=== PATIENT | male | born 1990 ===

== ENCOUNTER 2017-10-07 14:17 | Emergency (ER) | payer OTHER ==
[2017-10-07 14:37] VITALS: BP 118/75; PULSE 77; RESP 18; TEMP 98.3; O2SAT 99
[2017-10-07] MEDS ORDERED: cefTRIAXone (Rocephin) 250 mg Inj IM STA (14:44)
--- NOTE | 2017-10-07 14:46 | C.PDOC ---
History Of Present Illness 26yo male, comes to ER for evaluation of an itchy penile rash for the past 5 months. Patient states his symptoms started after he had unprotected sexual intercourse and he is concerned about a possible STD. Patient denies any discharge, dysuria, hematuria and offers no other complaints. VIA TRANS PENILE RASH, DC ITCH X 5 MO. ONSET AFTER UNSAFE SEX, CONCERN POSSIBLE STD. NO DC. DENIES OTHER ASSOC SX EXAM NAD [employer] [place]. UNCIRCUM. NO GROSS RASH, PENILE DC. 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 Time Seen by Provider: 10/07/17 14:43 Chief Complaint (Nursing): Male Genitourinary History Per: Patient, Site Safety Coordinator History/Exam Limitations: no limitations Onset/Duration Of Symptoms: Persistent Current Symptoms Are (Timing): Still Present Associated Symptoms: denies: Fever, Chills, Nausea, Vomiting, Diarrhea, Urinary Symptoms Past Medical History Reviewed: Historical Data, Nursing Documentation, Vital Signs Vital Signs: Last Vital Signs Temp 98.3 F 10/07/17 14:35 Pulse 77 10/07/17 14:35 Resp 18 10/07/17 14:35 BP 118/75 10/07/17 14:35 Pulse Ox 99 10/07/17 15:11 - Medical History PMH: No Chronic Diseases Surgical History: No Surg Hx Family History: States: No Known Family Hx - Social History Hx Alcohol Use: No Hx Substance Use: No Review Of Systems Except As Marked, All Systems Reviewed And Found Negative. Constitutional: Negative for: Fever, Chills Gastrointestinal: Negative for: Nausea, Vomiting, Abdominal Pain, Diarrhea Genitourinary: Positive for: Penile Discharge, Rash. Negative for: Dysuria, Frequency, Hematuria Physical Exam - Physical Exam Appears: Non-toxic, No Acute Distress Skin: Warm, Dry Head: Atraumatic, Normacephalic Eye(s): bilateral: Normal Inspection Neck: Supple Chest: Symmetrical Cardiovascular: Rhythm Regular Respiratory: Normal Breath Sounds Gastrointestinal/Abdominal: Normal Exam, Soft, No Tenderness Male Genital: No Scrotal Swelling, No Circumcised, Other (No gross rash or penile discharge noted. No lesions noted.) Neurological/Psych: Oriented x3 ED Course And Treatment O2 Sat by Pulse Oximetry: 99 (RA) Pulse Ox Interpretation: Normal Progress Note: Urinalysis ordered. Chlamydia, GC RNA/TMA cultures sent. Patient given Rocephin and Zithromax in ER. Disposition Counseled Patient/Family Regarding: Studies Performed, Diagnosis, Need For Followup - Disposition Referrals: [facility] [Outside] [facility] [Outside] [facility] [Other] Disposition: HOME/ ROUTINE Disposition Time: 15:11 Condition: IMPROVED Instructions: Sexually-Transmitted Diseases (DC) Forms: [employer] (Vietnamese) Print Language: CITIZEN OF [place] - Clinical Impression Clinical Impression: STD exposure, Itching of penis - Scribe Statement The provider has reviewed the documentation as recorded by the Wendie King Provider Attestation: All medical record entries made by the Wendie were at my direction and personally dictated by me. I have reviewed the chart and agree that the record accurately reflects my personal performance of the history, physical exam, medical decision making, and the department course for this patient. I have also personally directed, reviewed, and agree with the discharge instructions and disposition.
[2017-10-07 15:09] LABS: URINE BILIRUBIN NEGATIVE (NEGATIVE); URINE BLOOD NEGATIVE (NEGATIVE); URINE CLARITY Clear (Clear); URINE COLOR Yellow (YELLOW); URINE GLUCOSE (UA) NORMAL (Normal); URINE LEUKOCYTE ESTERASE NEG Leu/uL (Negative); URINE PROTEIN NEGATIVE (NEGATIVE); URINE UROBILINOGEN NORMAL mg/dL (0.2-1.0)
== END 2017-10-07 15:26 | disposition home or self-care (01) ==
LOC: C.ER 14:17
DX: Z20.2 Contact with and (suspected) exposure to infections with a predominantly sexual mode of transmission (principal); N48.9 Disorder of penis, unspecified
CPT/HCPCS: 81001; 87086; 87491; 87591; 96372; 99283; J0696